=== PATIENT | female | born 1955 ===

== ENCOUNTER 2025-07-24 06:17 | Day surgery (SDC) | payer OTHER, SELFPAY ==
[2025-07-24] VITALS (7 sets, daily range): BP systolic 108–138; BP diastolic 57–82; BMI 23.0
[2025-07-24] MEDS: NORMOSOL-R/PLASMALYTE-A 1000 IV (11:06)
== END 2025-07-24 14:50 | disposition home or self-care (01) ==
LOC: SDS 06:17
PROVIDERS: ATTENDING PHYSICIAN Otolaryngology Facial Plastic Surgery
DX: J34.829 Nasal valve collapse, unspecified (principal); G51.0 Bell's palsy
CPT/HCPCS: 30465; 14060